=== PATIENT | female | born 1950 | race Hispanic/Latino ===

== ENCOUNTER → 2017-08-27 | Outpatient (CLI) | payer MEDICARE | END | disposition home or self-care (01) | LOC: SHCH 15:22 | PROVIDERS: ATTEND Internal Medicine Cardiovascular Disease | DX: I87.2 Venous insufficiency (chronic) (peripheral) (principal) | CPT/HCPCS: 93970 ==

== ENCOUNTER → 2019-03-29 | Outpatient (CLI) | payer MEDICARE | END | disposition home or self-care (01) | LOC: SHCH 09:21 | PROVIDERS: ATTEND Internal Medicine Cardiovascular Disease | DX: I87.2 Venous insufficiency (chronic) (peripheral) (principal) | CPT/HCPCS: 93970 ==

== ENCOUNTER 2020-03-05 22:12 | Inpatient (IN) | payer MEDICARE ==
[~2020-03-05] VITALS: Ht 157.5 cm; Wt 99.5 kg
[2020-03-05] MEDS ORDERED: ACETAMINOPHEN 650 MG SUPPOSITORY RC ONE (22:16)
[2020-03-05] MEDS ORDERED: DiphenhydrAMINE HCL 50 MG/ML VIAL ONE (22:19)
[2020-03-05] MEDS ORDERED: METHYLPREDNISOLONE SOD SUCC 125MG/2ML VIAL ONE (22:19)
[2020-03-05] MEDS ORDERED: LORAZEPAM 2 MG/ML 1 ML VIAL ONE (22:20)
[2020-03-05] MEDS ORDERED: ZOSYN 3.375GM+NS 50ML 50 ML IV ONE (22:20)
[2020-03-05 22:37] LABS: BASOPHILS % (AUTO) 0.2 % (0.0-5.0); EOSINOPHILS % (AUTO) 1.6 % (0.0-8.0); HEMATOCRIT 31.9 % (36-48); LYMPHOCYTES % (AUTO) 8.6 % (21.0-51.0); MEAN CORPUSCULAR HEMOGLOBIN 30.2 pg (27.0-33.0); MEAN CORPUSCULAR HGB CONC 33.5 g/dL (32.0-36.0); MEAN CORPUSCULAR VOLUME 90.1 fL (79-99); MONOCYTES % (AUTO) 7.8 % (3.0-13.0); NEUTROPHILS % (AUTO) 81.6 % (40.0-77.0); PLATELET COUNT (AUTO) 108 K/uL (130-400); RED BLOOD CELL COUNT(AUTO) 3.54 MIL/uL (4.00-5.50); WHITE BLOOD COUNT (AUTO) 12.8 K/uL (4.8-10.8)
[2020-03-05 22:59] LABS: INR 0.98 (0.85-1.15); PARTIAL THROMBOPLASTIN TIME 26.1 SEC (26.3-35.5); PROTHROMBIN TIME 10.6 SEC (9.6-11.6)
[2020-03-05 23:08] LABS: APPEARANCE,URINE Cloudy (CLEAR); BILIRUBIN,URINE Negative (NEGATIVE); COLOR,URINE Dark Yellow (YELLOW); GLUCOSE, URINE (UA) Negative (NEGATIVE); KETONES,URINE Trace mg/dL (NEGATIVE); LEUKOCYTE ESTERASE ,URINE Small (NEGATIVE); NITRATE,URINE Negative (NEGATIVE); OCCULT BLOOD,URINE Negative (NEGATIVE); PROTEIN,URINE Trace mg/dL (NEGATIVE)
[2020-03-05 23:14] LABS: CREATININE 3.1 mg/dL (0.5-1.5); POTASSIUM 4.1 mmol/L (3.5-5.1)
[2020-03-05 23:18] LABS: ALBUMIN 3.4 g/dL (3.5-5.0); BILIRUBIN,TOTAL 0.4 mg/dL (0.2-1.0); TOTAL PROTEIN, SERUM 7.6 g/dL (6.0-8.3)
[2020-03-05 23:19] LABS: BACTERIA,URINE None Seen /HPF (None Seen); MUCUS,URINE Moderate LPF (None Seen); RBC,URINE None Seen /HPF (0-1); SQUAMOUS EPITHELIAL CELL,UR Moderate /HPF (0-2); WBC,URINE 0-1 /HPF (0-1)
[2020-03-05] MEDS ORDERED: DOXYCYCLINE 100MG+NS 250ML 250 ML IV ONE (23:20)
[2020-03-06] MEDS: SODIUM CHLORIDE 0.9% 1000ML 1,000 ML IV SCH ×3 (03:05→22:19)
[2020-03-06] MEDS ORDERED: ACETAMINOPHEN 650 MG SUPPOSITORY RC PRN (03:15)
[2020-03-06] MEDS ORDERED: MORPHINE SULFATE 2 MG/ML 1ML SYG IV PRN (03:15)
[2020-03-06] MEDS ORDERED: VANCOMYCIN PROTOCOL PER PHARMACY IV PRN (03:15)
[2020-03-06] MEDS ORDERED: ONDANSETRON HCL 4 MG/2 ML VIAL IV PRN (03:15)
[2020-03-06] MEDS ORDERED: VANCOMYCIN 1GM+NS 250ML 250 ML IV ONE (03:27)
[2020-03-06] MEDS ORDERED: HYDRALAZINE HCL 20 MG/ML VIAL IV PRN (03:45)
[2020-03-06] MEDS ORDERED: SODIUM CHLORIDE 0.9% 1000ML 1,000 ML IV SCH (04:00)
[2020-03-06 05:12] VITALS: BP 112/59
[2020-03-06] MEDS: INSULIN HUMULIN R 100 UNIT/ML 3ML SQ SCH ×3 (06:00→18:00)
[2020-03-06] MEDS: ZOSYN 3.375GM+NS 50ML 50 ML IV SCH ×3 (06:43→22:11)
[2020-03-06 08:00] VITALS: BP 102/42
[2020-03-06 08:36] LABS: BASOPHILS % (AUTO) 0.1 % (0.0-5.0); HEMATOCRIT 25.6 % (36-48); LYMPHOCYTES % (AUTO) 8.7 % (21.0-51.0); MEAN CORPUSCULAR HEMOGLOBIN 30.3 pg (27.0-33.0); MEAN CORPUSCULAR HGB CONC 32.8 g/dL (32.0-36.0); MEAN CORPUSCULAR VOLUME 92.4 fL (79-99); MONOCYTES % (AUTO) 4.4 % (3.0-13.0); NEUTROPHILS % (AUTO) 86.4 % (40.0-77.0); PLATELET COUNT (AUTO) 80 K/uL (130-400); RED BLOOD CELL COUNT(AUTO) 2.77 MIL/uL (4.00-5.50); RED CELL DISTRIBUTION WIDTH 14.2 % (11.0-15.5); WHITE BLOOD COUNT (AUTO) 8.5 K/uL (4.8-10.8)
[2020-03-06 08:43] LABS: HEMOGLOBIN A1C 5.8 % (4.0-6.0)
[2020-03-06 08:51] LABS: ALBUMIN 2.5 g/dL (3.5-5.0); BILIRUBIN,TOTAL 0.3 mg/dL (0.2-1.0); CREATININE 2.4 mg/dL (0.5-1.5); POTASSIUM 3.8 mmol/L (3.5-5.1); TOTAL PROTEIN, SERUM 5.9 g/dL (6.0-8.3)
[2020-03-06] MEDS: FAMOTIDINE/PF 20 MG/2 ML VIAL IV SCH (10:17)
[2020-03-06] MEDS: VALPROIC ACID (AS SODIUM SALT) 500 MG in SODIUM CHLORIDE 0.9% 100 ML IV SCH ×2 (10:17→22:16)
--- NOTE | 2020-03-06 11:00 | NUR ---
DYSPHAGIA EVAL COMPLETED. +S/S OF ASPIRATION. RECOMMEND NPO, SHORT TERM ALTERNATE MEANS OF NUTRITION/HYDRATION. RECOMMENDATIONS: 1. RE-EVAL WHEN CURRENT STATUS IMPROVES. 2. DYSPHAGIA THERAPY 1-5X WEEK TO INCREASE ORAL MOTOR STRENGTH AND PHARYNGEAL SWALLOW: LTG#1: Pt WILL TOLERATE LEAST RESTRICTIVE DIET TO MEET NUTRITION/HYDRATION WITH NO S/S OF ASPIRATION. LTG#2: SKILLED EDUCATION Pt/FAMILY/STAFF STG#1: Pt WILL PARTICIPATE IN LARYNGEAL ELEVATION/EXCURSION EXERCISES WITH 70% ACCURACY. STG#2: Pt WILL PARTICIPATE IN ORAL MOTOR EXERCISES VIA IMITATION/MAX CUES WITH 70% ACCURACY. STG#4: Pt WILL PARTICIPATE IN THERAPEUTIC TRIALS OF PUREED WITH NO OVERT S/S OF ASPIRATION. STG#5: PT WILL BE ABLE TO PARTICIPATE IN RE-EVALUATION. STG#6: SKILLED EDUCATION Pt/FAMILY/STAFF. OSTEOPATHIC MEDICINE TEACHER CALLED NEXT OF KIN, SISTER VALENTINA. SHE REPORTS Pt HAD STOPPED EATING SINCE YESTERDAY. SHE HAD BEEN EATING LESS SINCE 2 WEEKS AGO. SHE REPORTS CVA WAS 1 YEAR AGO AND THAT SHE WAS PREVIOUSLY TOLERATING SOLIDS AND THIN LIQUIDS. SHE WAS DRINKING ENSURES IN THE LAST WEEKS. OSTEOPATHIC MEDICINE TEACHER COMMUNICATED RECOMMENDATIONS FOR SHORT-TERM ALTERNATE MEANS OF NUTRITION/HYDRATION, SHE VERBALIZED UNDERSTANDING AND AGREEMENT. OSTEOPATHIC MEDICINE TEACHER COORDINATED CARE WITH NURSE ALC[place]ARA. Addendum: 03/06/20 at 1330 by SHRYEA MART, [facility] Amended: Links added.
[2020-03-06 12:00] VITALS: BP 111/50
[2020-03-06] MEDS ORDERED: COMPOUND IV MISC 1 EACH IVSOLN MISC PRN (12:45)
[2020-03-06 14:55] LABS: PROTEIN,URINE RANDOM 34.1 mg/dL (0-11.9)
[2020-03-06 16:00] VITALS: BP_SYST 121; BP_SYST 135; BP_DIAS 53; BP_DIAS 73
--- NOTE | 2020-03-06 17:55 | NUR ---
cm note pt confused at present. sister mikey lan [phone] states resides at home with her(primary decisonmaker), pt is recently and no children, pt deteriorated in the last 3 weeks, was using cane, and now too weak to walk. and not eating. has [employer] for [facility], no provider, submitted application already. discussed snf option with sister, and states is open to snf if md recommends. if not, dc plan is back home. Addendum: 03/06/20 at 1802 by LYNN BELLE Amended: Links added.
[2020-03-06 20:25] VITALS: BP 118/49
[2020-03-06] MEDS: ENOXAPARIN SODIUM 60 MG/0.6 ML SQ SCH (22:14)
[2020-03-06 23:39] VITALS: BP 153/60
[2020-03-07 03:26] VITALS: BP 136/55
[2020-03-07] MEDS: ZOSYN 3.375GM+NS 50ML 50 ML IV SCH ×3 (04:46→21:30)
[2020-03-07 05:33] LABS: HEMATOCRIT 26.1 % (36-48); MEAN CORPUSCULAR HEMOGLOBIN 30.3 pg (27.0-33.0); MEAN CORPUSCULAR HGB CONC 33.3 g/dL (32.0-36.0); MEAN CORPUSCULAR VOLUME 90.9 fL (79-99); PLATELET COUNT (AUTO) 91 K/uL (130-400); RED BLOOD CELL COUNT(AUTO) 2.87 MIL/uL (4.00-5.50); RED CELL DISTRIBUTION WIDTH 13.9 % (11.0-15.5); WHITE BLOOD COUNT (AUTO) 6.2 K/uL (4.8-10.8)
[2020-03-07 05:52] LABS: CREATININE 1.4 mg/dL (0.5-1.5); PHOSPHORUS 2.9 mg/dL (2.5-4.9); POTASSIUM 3.2 mmol/L (3.5-5.1)
[2020-03-07 05:56] LABS: BAND NEUTROPHILS % (MANUAL) 4 % (0-2); EOSINOPHILS % (MANUAL) 1 % (1-6); LYMPHOCYTES % (MANUAL) 27 % (22-44); MAN.DIFF COMMENT-IMPRESSION MANUAL DIFFERENTIAL; MONOCYTES % (MANUAL) 3 % (2-9); PLATELET MORPHOLOGY COMMENT SLIGHTLY DECREASED; SEGMENTED NEUTROPHILS % 65 % (40-70)
[2020-03-07 05:57] LABS: % IRON SATURATION 17.5 % (22-44)
[2020-03-07] MEDS: INSULIN HUMULIN R 100 UNIT/ML 3ML SQ SCH ×4 (06:00→18:00)
[2020-03-07 07:30] VITALS: BP 130/60
[2020-03-07] MEDS: FAMOTIDINE/PF 20 MG/2 ML VIAL IV SCH (08:45)
[2020-03-07] MEDS: ENOXAPARIN SODIUM 60 MG/0.6 ML SQ SCH ×2 (08:46→21:31)
[2020-03-07] MEDS ORDERED: VANCOMYCIN 1GM+NS 250ML 250 ML IV SCH ×2 (09:00→11:15)
--- NOTE | 2020-03-07 10:00 | NUR ---
DYSPHAGIA RE-EVAL COMPLETED. RECOMMEND NPO, LONG-TERM ALTERNATE MEANS OF NUTRITION/HYDRATION. Addendum: 03/07/20 at 1403 by SHREYA MART, [facility] Amended: Links added.
[2020-03-07] MEDS: SODIUM CHLORIDE 0.9% 1000ML 1,000 ML IV SCH ×2 (10:53→21:29)
[2020-03-07] MEDS: VALPROIC ACID (AS SODIUM SALT) 500 MG in SODIUM CHLORIDE 0.9% 100 ML IV SCH ×2 (10:53→21:29)
[2020-03-07 11:00] VITALS: BP 138/61
[2020-03-07] MEDS ORDERED: MAGNESIUM CITRATE 296 ML SOLUTION PO SCH (11:00)
[2020-03-07] MEDS ORDERED: POTASSIUM CHLORIDE 20MEQ/100ML 100 ML IV PRN (11:00)
[2020-03-07] MEDS ORDERED: POTASSIUM CHLORIDE 10% ELIXIR 20 MEQ/15 ML UDCUP PO PRN (11:00)
[2020-03-07] MEDS ORDERED: POTASSIUM CHLORIDE 20 MEQ ERTAB PO PRN (11:00)
[2020-03-07] MEDS ORDERED: LIDOCAINE HCL-MPF 1% 2ML VIAL IV PRN ×2 (11:00)
[2020-03-07] MEDS ORDERED: RENAL DOSE IV PRN (11:00)
--- NOTE | 2020-03-07 15:56 | NUR ---
RD NOTIFICATION Pt with +S/S Aspiration, s/p ST evaluation; lobsterman alternate means nutrition recommended. Recommend initiate continuous Glucerna 1.5 @15mls. Goal 40mls/hr. Recommend Flushes: 145mls Q6hrs Recommendations faxed to [phone] Attempt to notify RN, no answer x 3. No fax machine on 4D Bolus recommendations provided for lobsterman/ Discharge NUTRITION NOTE: Pt admitted with Fever, Leukocytosis, AMS, History of CKD and DM. Pt with FTT. Monitored labs: K 3.2, BUN 31, GFR 40, Alb 2.5. Obesity Class II (BMI 37.6). RD to continue to monitor. Please notify as additional nutrition concerns arise. Thank you. Addendum: 03/07/20 at [address] Amended: Links added.
[2020-03-07 16:00] VITALS: BP 138/42
--- NOTE | 2020-03-07 16:15 | NUR ---
PER PEDIATRICIAN MANAGING PARTNER RECOMMENDED TO ADVANCE TUBE . TUBE ADVANCE PICTURE TAKEN AGAIN ,PER PEDIATRICIAN MANAGING PARTNER STILL LOOKS COILED. REMOVED NGT .REPLACED WITH NEW ONE AT [address] . PENDING NEW X RAY TO CONFIRM PLACEMENT
--- NOTE | 2020-03-07 18:00 | NUR ---
turn q 2
--- NOTE | 2020-03-07 18:00 | NUR ---
CONFIRMED X RAY OF NGT PLACEMENT. MAG CITRATE GIVEN VIA NGT . WILL CONT TO MONITOR
[2020-03-07] MEDS: POTASSIUM CHLORIDE 20MEQ/100ML 100 ML IV PRN (19:19)
[2020-03-07 20:15] VITALS: BP 137/68
--- NOTE | 2020-03-07 20:26 | NUR ---
called to mikey sister of patient to let her know security had patients yellow color ring locked up . sister verbalized understanding
[2020-03-08] VITALS (7 sets, daily range): BP systolic 118–163; BP diastolic 55–80
--- NOTE | 2020-03-08 02:00 | NUR ---
NG TUBE PULLED PATIENT PULLED OUT HER NG TUBE AND HAS BEEN AGGRESSIVE TRYING TO PLACE NEW ONE IN. WILL ATTEMPT LATER.
[2020-03-08] MEDS: SODIUM CHLORIDE 0.9% 1000ML 1,000 ML IV SCH ×2 (05:37→16:30)
[2020-03-08] MEDS: ZOSYN 3.375GM+NS 50ML 50 ML IV SCH ×3 (05:38→21:34)
[2020-03-08] MEDS: INSULIN HUMULIN R 100 UNIT/ML 3ML SQ SCH ×4 (05:39→21:00)
[2020-03-08 08:55] LABS: BASOPHILS % (AUTO) 0.4 % (0.0-5.0); EOSINOPHILS % (AUTO) 1.4 % (0.0-8.0); HEMATOCRIT 27.2 % (36-48); MEAN CORPUSCULAR HEMOGLOBIN 30.3 pg (27.0-33.0); MEAN CORPUSCULAR HGB CONC 33.1 g/dL (32.0-36.0); MEAN CORPUSCULAR VOLUME 91.6 fL (79-99); MONOCYTES % (AUTO) 9.5 % (3.0-13.0); NEUTROPHILS % (AUTO) 62.9 % (40.0-77.0); PLATELET COUNT (AUTO) 95 K/uL (130-400); RED BLOOD CELL COUNT(AUTO) 2.97 MIL/uL (4.00-5.50); RED CELL DISTRIBUTION WIDTH 13.9 % (11.0-15.5); WHITE BLOOD COUNT (AUTO) 5.2 K/uL (4.8-10.8)
[2020-03-08 09:16] LABS: CREATININE 1.2 mg/dL (0.5-1.5); POTASSIUM 3.6 mmol/L (3.5-5.1)
[2020-03-08] MEDS: IRON SUCROSE COMPLEX 100 MG in SODIUM CHLORIDE 0.9% 50 ML IV SCH (10:56)
[2020-03-08] MEDS: FAMOTIDINE/PF 20 MG/2 ML VIAL IV SCH (10:56)
[2020-03-08] MEDS: VANCOMYCIN 1GM+NS 250ML 250 ML IV SCH (10:56)
[2020-03-08] MEDS: VALPROIC ACID (AS SODIUM SALT) 500 MG in SODIUM CHLORIDE 0.9% 100 ML IV SCH ×2 (10:56→21:34)
[2020-03-08] MEDS: ENOXAPARIN SODIUM 60 MG/0.6 ML SQ SCH ×2 (10:57→21:35)
[2020-03-08] MEDS ORDERED: LORAZEPAM 2 MG/ML 1 ML VIAL IVP SCH (11:45)
--- NOTE | 2020-03-08 12:07 | NUR ---
DR. HADDAD SPOKE WITH PATIENTS SISTER VALENTINA LEIVA THIS AM REGARDING NEED FOR PEG TUBE PLACEMENT. SISTER STATED SHE WOULD SPEAK WITH HER SIBLINGS AND LET US KNOW LATER TODAY. AT THIS TIME I RECEIVED A PHONE CALL FROM VALENTINA LEIVA SHE STATED THE FAMILY HAS DECIDED TO DECLINE PEG TUBE PLACEMENT. RISKS AND BENEFITS DISCUSSED WITH PATIENTS SISTER BY DR. HADDAD.
[2020-03-09 04:30] VITALS: BP 137/75
[2020-03-09] MEDS: INSULIN HUMULIN R 100 UNIT/ML 3ML SQ SCH ×4 (05:04→17:49)
[2020-03-09] MEDS: SODIUM CHLORIDE 0.9% 1000ML 1,000 ML IV SCH (05:04)
[2020-03-09] MEDS: ZOSYN 3.375GM+NS 50ML 50 ML IV SCH ×3 (05:04→22:47)
[2020-03-09 07:45] VITALS: BP 131/58
[2020-03-09 08:28] LABS: BASOPHILS % (AUTO) 0.8 % (0.0-5.0); EOSINOPHILS % (AUTO) 0.6 % (0.0-8.0); HEMATOCRIT 27.1 % (36-48); LYMPHOCYTES % (AUTO) 21.6 % (21.0-51.0); MEAN CORPUSCULAR HEMOGLOBIN 30.1 pg (27.0-33.0); MEAN CORPUSCULAR HGB CONC 33.2 g/dL (32.0-36.0); MEAN CORPUSCULAR VOLUME 90.6 fL (79-99); MONOCYTES % (AUTO) 12.2 % (3.0-13.0); NEUTROPHILS % (AUTO) 63.4 % (40.0-77.0); NUCLEATED RED BLOOD CELLS 0.4 % (0.0-0.19); PLATELET COUNT (AUTO) 104 K/uL (130-400); RED BLOOD CELL COUNT(AUTO) 2.99 MIL/uL (4.00-5.50); RED CELL DISTRIBUTION WIDTH 14.3 % (11.0-15.5)
[2020-03-09 08:44] LABS: CREATININE 1.1 mg/dL (0.5-1.5); POTASSIUM 3.3 mmol/L (3.5-5.1)
[2020-03-09] MEDS: IRON SUCROSE COMPLEX 100 MG in SODIUM CHLORIDE 0.9% 50 ML IV SCH (08:50)
[2020-03-09] MEDS: VALPROIC ACID (AS SODIUM SALT) 500 MG in SODIUM CHLORIDE 0.9% 100 ML IV SCH ×2 (09:17→22:47)
[2020-03-09] MEDS: FAMOTIDINE/PF 20 MG/2 ML VIAL IV SCH (09:17)
[2020-03-09] MEDS: ENOXAPARIN SODIUM 60 MG/0.6 ML SQ SCH ×2 (09:18→22:46)
[2020-03-09] MEDS: DEXTROSE 5%-WATER 1,000 ML IV SCH ×2 (09:49→22:50)
[2020-03-09] MEDS: VANCOMYCIN 1GM+NS 250ML 250 ML IV SCH (09:59)
[2020-03-09 11:00] VITALS: BP 115/49
[2020-03-09] MEDS: POTASSIUM CHLORIDE 20MEQ/100ML 100 ML IV PRN (12:04)
--- NOTE | 2020-03-09 12:50 | NUR ---
Hospice Order SW spoke w/pt's sister Leah Del Cid regarding order for hospice. Sister provided with information on Hospice and their approach to care of pt.; sister verbalized an understanding to hospice care and in agreement for pt. to return home with hospice care. Pt's sister wept as she spoke of the deterioration of pt's condition; SW provided empathetic listening. Pt's sister gave verbal consent for JUDITH/Choice with [facility]. SW also spoke with Sister about signature of OOHDNRR; pt's sister in agreement for OOHDNR and will meet with SW in ED tomorrow at 0900. Referral faxed and confirmed recd by Jeff. Per Jeff he will reach out to pt's sister for admission process, DME, etc and follow up with this worker when pt. is accepted. CM and DofCM made aware.
--- NOTE | 2020-03-09 13:51 | NUR ---
SWALLOW TREATMENT COMPLETED. S: Pt IN BED AT THE TIME OF THE SESSION. Pt NOT ABLE TO FOLLOW 1-STEP COMMANDS. EXPORT AGENT PROVIDED MAX COAXING AND CUES AT THE TIME OF THE SESSION. O:STG#1: Pt WILL PARTICIPATE IN LARYNGEAL ELEVATION/EXCURSION EXERCISES WITH 70% ACCURACY: NOT TARGETED STG#2: Pt WILL PARTICIPATE IN ORAL MOTOR EXERCISES VIA IMITATION/MAX CUES WITH 70% ACCURACY:0% STG#4: Pt WILL PARTICIPATE IN THERAPEUTIC TRIALS OF PUREED WITH NO OVERT S/S OF ASPIRATION: ANTERIOR SPILLAGE WITH ABSENT OPENING OF MOUTH AND ABSENT SPOON STRIPPING OF BOLUS, WITH TOTAL ANTERIOR SPILLAGE WITH THIN LIQUIDS AND PUREED. Pt WITH PROFOUND ORAL DYSPHAGIA AT THIS TIME. A: Pt WITH NO TOLERANCE FOR P.O. OR ACCEPTANCE OF BOLUS DUE TO PROFOUND ORAL DYSPHAGIA. P: PER NURSE HUGHES, Pt'S FAMILY REFUSED PEG PLACEMENT. Pt NOT ACCEPTING P.O. AT THIS TIME; AT RISK FOR MALNUTRITION. EXPORT AGENT WILL CONTINUE TO FOLLOW Pt. Addendum: 03/09/20 at 1356 by SHREYA MART [facility] Amended: Links added.
--- NOTE | 2020-03-09 15:00 | NUR ---
SuzyRN made aware of hospice referral and plan for d/c tomorrow after DME is delivered; also that OOHDNR is left and flagged in chart for physician signature.
[2020-03-09 16:00] VITALS: BP 130/52
[2020-03-09 20:10] VITALS: BP 144/70
[2020-03-09 23:29] VITALS: BP 139/71
[2020-03-10 04:00] VITALS: BP 162/76
[2020-03-10] MEDS: INSULIN HUMULIN R 100 UNIT/ML 3ML SQ SCH ×3 (06:00→12:00)
[2020-03-10] MEDS: ZOSYN 3.375GM+NS 50ML 50 ML IV SCH (06:37)
[2020-03-10 08:00] VITALS: BP 158/79
[2020-03-10] MEDS: IRON SUCROSE COMPLEX 100 MG in SODIUM CHLORIDE 0.9% 50 ML IV SCH (09:00)
[2020-03-10] MEDS: FAMOTIDINE/PF 20 MG/2 ML VIAL IV SCH (09:00)
[2020-03-10 11:00] VITALS: BP 159/71
--- NOTE | 2020-03-10 11:20 | NUR ---
Copy of OOHDNR faxed to this worker by Jeff and placed in front of chart. SW notified by Jeff/[facility] that DME has been delivered to pt's home and is ready for pt. to be d'c'd; FRED Mckeon made aware.
--- NOTE | 2020-03-10 11:42 | NUR ---
CM NOTE/[facility] APPROVED/EMS PER LOOM FIXER APPRENTICE, [facility] APPROVED AND DME HAS NOW BEEN DELIVERED. [facility] PHONE NUMBER GIVEN TO PRIMARY NURSE, NABIL GARCIA, FOR REPORT. EMS SET UP, FAXED, CONFIRMED RECEIVED. NABIL GARCIA, MADE AWARE OF READY FOR DC. DC ORDERS GIVEN.
[2020-03-10] MEDS: ENOXAPARIN SODIUM 60 MG/0.6 ML SQ SCH (11:59)
[2020-03-10] MEDS: VANCOMYCIN 1GM+NS 250ML 250 ML IV SCH (12:00)
[2020-03-10] MEDS: DEXTROSE 5%-WATER 1,000 ML IV SCH (12:47)
--- NOTE | 2020-03-10 13:30 | NUR ---
report given to hospice nurse Sravani DALAL
[2020-03-10 16:04] VITALS: BP 162/80
== END 2020-03-10 16:24 | disposition hospice, home (50) | DRG 871 ==
LOC: EDH 22:12 → OBSVTOIN 03-06 03:05 → EDHIP 03-06 03:05 → 4DH 03-06 04:22
PROVIDERS: ADMIT Internal Medicine Critical Care Medicine; ATTEND Internal Medicine Critical Care Medicine
DX: A41.9 Sepsis, unspecified organism (principal); G92 Toxic encephalopathy; J18.9 Pneumonia, unspecified organism; N17.9 Acute kidney failure, unspecified; E87.2 Acidosis; I69.354 Hemiplegia and hemiparesis following cerebral infarction affecting left non-dominant side; N39.0 Urinary tract infection, site not specified; Z68.41 Body mass index [BMI] 40.0-44.9, adult; E46 Unspecified protein-calorie malnutrition; N18.9 Chronic kidney disease, unspecified; I12.9 Hypertensive chronic kidney disease with stage 1 through stage 4 chronic kidney disease, or unspecified chronic kidney disease; E11.22 Type 2 diabetes mellitus with diabetic chronic kidney disease; Z20.828 Contact with and (suspected) exposure to other viral communicable diseases; E86.0 Dehydration; E66.9 Obesity, unspecified; K59.00 Constipation, unspecified; R62.7 Adult failure to thrive; B96.89 Other specified bacterial agents as the cause of diseases classified elsewhere; R53.81 Other malaise; R13.12 Dysphagia, oropharyngeal phase; F03.90 Unspecified dementia, unspecified severity, without behavioral disturbance, psychotic disturbance, mood disturbance, and anxiety; Z74.01 Bed confinement status; Z83.3 Family history of diabetes mellitus; Z82.49 Family history of ischemic heart disease and other diseases of the circulatory system
CPT/HCPCS: 36415; 70450; 70551; 71045; 74018; 74176; 76770; 80048; 80053; 81001; 82550; 82570; 82948; 83036; 83540; 83550; 83605; 83735; 84100; 84132; 84156; 84484; 85025; 85378; 85610; 85730; 87040; 87077; 87088; 87186; 87426; 92526; 92610; 93005; 93306; 93356; 93880; 93970; 99291; G0378; J1200; J1650; J1756; J2060; J2543; J2930; J3370; J3480; J3490; J7030; J7070; U0003